=== PATIENT | male | born 1945 | race American Indian/Alaskan Native ===

== ENCOUNTER 2018-06-13 15:47 | Outpatient (CLI) | payer MEDICARE ==
--- NOTE | 2018-06-14 07:34 | XRay Report ---
FINAL REPORT EXAM: XR SPINE CERVICAL 4-5V HISTORY: cervical radiculopathy COMPARISONS: None FINDINGS: Four views of the cervical spine Cervical lordosis is within normal limits. Vertebral body heights are preserved. No fractures. There is moderate intervertebral disc space narrowing at C3-C4 and C4-C5 with associated endplate remodeling and spondylosis. Moderate right-sided osseous neural foraminal stenosis and mild left-sided neural foraminal stenosis is suggested at these levels. Prevertebral soft tissues are within normal limits. Incomplete evaluation of the lung apices is unremarkable. IMPRESSION: Moderate sequela of disc degeneration at C3-C4 and C4-C5.
== END 2018-06-13 15:48 | disposition home or self-care (01) ==
LOC: SPVIMAG 15:47
PROVIDERS: ATTEND Internal Medicine
DX: M47.892 Other spondylosis, cervical region (principal); M48.02 Spinal stenosis, cervical region
CPT/HCPCS: 72050